=== PATIENT | female | born 1965 | race African-American/Black ===

== ENCOUNTER 2017-02-17 10:21 | Outpatient (CLI) | payer OTHER ==
--- NOTE | 2017-02-17 11:52 | XRay Report ---
LEFT WRIST RADIOGRAPHS INDICATION: Wrist pain. COMPARISON: None similar. FINDINGS: AP, lateral and oblique left wrist radiographs demonstrate intact carpal bony articulation and appearance. Small 2-3 mm calcific densities, possibly 2 adjacent to each other, appear corticated and project distal to the ulnar styloid process in the region of the TFCC. Grossly unremarkable soft tissues. CONCLUSION: No acute bony abnormality with small nonspecific calcification(s) noted distal to the left ulnar styloid process, as described. Please correlate. Thank you for the opportunity to participate in this patient's care.
--- NOTE | 2017-02-17 13:28 | Mammography Report ---
Screening mammogram: Routine views demonstrate a generally fatty replaced breast pattern. There is a focal circumscribed asymmetry in the inferolateral left breast. No other findings. CAD used. Impression: Left asymmetry. Recommendation: Prior exams are being requested for comparison. Recommendation will be issued at that time. BI-RADS CATEGORY: 0 = Needs additional imaging evaluation ACR BI-RADS MAMMOGRAPHIC CODES: 0 = Needs additional imaging evaluation; 1 = Negative; 2 = Benign; 3 = Probably benign; 4 = Suspicious; 5 = Malignant; 6 = Known biopsy-proven malignancy COMMENT: 1. Dense breast tissue, i.e., adenosis, fibrocystic changes, etc., may obscure an underlying neoplasm. 2. Approximately 10% of cancers are not detected with mammography. 3. A negative mammography report should not delay biopsy if a clinically suspicious mass is present.
== END 2017-02-17 10:22 | disposition home or self-care (01) ==
LOC: SPVWC 10:21
PROVIDERS: ATTEND Family Medicine
DX: Z12.31 Encounter for screening mammogram for malignant neoplasm of breast (principal); M25.832 Other specified joint disorders, left wrist
CPT/HCPCS: 73110; G0202; 77067

== ENCOUNTER 2018-04-21 09:53 | Outpatient (CLI) | payer OTHER ==
--- NOTE | 2018-04-21 14:14 | XRay Report ---
XRAY LEFT WRIST THREE VIEWS:04/21/18 09:53:00 CLINICAL: Left wrist pain. COMPARISON: 02/17/17 FINDINGS: Mild diffuse osteopenia. No fracture or dislocation. 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 Mild osteoarthritis at the first MCP joint. Carpal bones are intact. Mild radiocarpal joint arthritis. Benign accessory ossicles distal to the ulnar styloid. Normal soft tissues. 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
== END 2018-04-21 09:54 | disposition home or self-care (01) ==
LOC: SPVIMAG 09:53
PROVIDERS: ATTEND Family Medicine
DX: M19.032 Primary osteoarthritis, left wrist (principal)

== ENCOUNTER 2018-11-24 13:45 | Outpatient (CLI) | payer OTHER ==
--- NOTE | 2018-11-24 15:42 | XRay Report ---
PA AND LATERAL CXR HISTORY: BCG vaccination COMPARISON: None FINDINGS: Cardiomediastinal silhouette: Normal cardiac size. Normal mediastinal contours. Lungs: Normal expansion. Normal lung aeration. No pleural effusions. No pneumothorax. Pulmonary vascularity: Normal. Support hardware: None. Additional findings: None. IMPRESSION: 1. No acute cardiopulmonary process. 2. No signs of acute or chronic TB. Signer Name: Francisco Rivera MD Signed: 11/24/2018 3:38 PM Workstation Name: [id number]
== END 2018-11-24 13:46 | disposition home or self-care (01) ==
LOC: SPVIMAG 13:45 → XRAY 13:45 → SPVIMAG 13:46
PROVIDERS: ATTEND Family Medicine
DX: Z92.29 Personal history of other drug therapy (principal)
CPT/HCPCS: 71046

== ENCOUNTER 2019-08-05 08:28 | Outpatient (CLI) | payer OTHER ==
--- NOTE | 2019-08-05 09:05 | XRay Report ---
CHEST PA AND LATERAL VIEWS INDICATION: COUGH R05. COMPARISON: None FINDINGS: Support devices: None Heart: Normal Lungs/Pleura: No acute pulmonary or pleural findings. IMPRESSION: 1. No significant abnormality. Signer Name: Shakeel Castro MD Signed: 08/05/2019 9:00 AM Workstation Name: [id number]
== END 2019-08-05 08:29 | disposition home or self-care (01) ==
LOC: SPVIMAG 08:28
PROVIDERS: ATTEND Family Medicine
DX: R05 Cough (principal)
CPT/HCPCS: 71046